=== PATIENT | female | born 1980 | race Two or more races ===

== ENCOUNTER → 2023-06-03 | Emergency (ER) | payer BC, MEDICAID ==
[~2023-06-03] VITALS: Ht 172.7 cm; Wt 85.0 kg
[2023-06-03 10:16] VITALS: BP 142/66; RESP 16; O2SAT 100
[2023-06-03 10:26] VITALS: PULSE 72
[2023-06-03 10:54] LABS: Eosinophils # (auto) 0.1 10 ^3/uL (0-0.8); Hemoglobin 7.2 g/dL (12.2-16.2); Monocytes # (auto) 0.4 10 ^3/uL (0-1.3); Monocytes % (auto) 4.9 % (0.0-12.0)
[2023-06-03 10:56] LABS: Basophils # (auto) 0.2 10 ^3/uL (0-0.2); Basophils % (auto) 1.7 % (0.0-2.0); Eosinophils % (auto) 0.8 % (0.0-7.0); Hematocrit 24.8 % (36.0-46.0); Lymphocytes # (auto) 2.6 10 ^3/uL (0.4-5.4); Lymphocytes % (auto) 28.3 % (10.0-50.0); Mean Corpuscular Hemoglobin 15.7 pg (28.0-32.0); Mean Corpuscular Volume 54.2 fL (80.0-100.0); Neutrophils # (auto) 5.8 10 ^3/uL (1.6-8.6); Neutrophils % (auto) 64.3 % (37.0-80.0); Nucleated Red Blood Cells % 0.1 %; Red Blood Cells 4.57 10^6/uL (4.0-5.20)
[2023-06-03 10:57] LABS: Urine Bacteria None Seen /hpf (None Seen)
[2023-06-03 10:58] LABS: Red Cell Distribution Width 20.3 % (11.8-14.3)
[2023-06-03 11:11] LABS: Albumin 4.4 g/dL (3.2-4.8); Alkaline Phosphatase 107 U/L (46-116); Anion Gap 6 (5-15); Aspartate Aminotransferase < 8 U/L (13-40); BUN/Creatinine Ratio 10.6 (10.0-20.0); Bilirubin, Total 0.8 mg/dL (0.2-1.0); Blood Urea Nitrogen 7 mg/dL (9-23); Carbon Dioxide 25 mmol/L (20-30); Chloride 106 mmol/L (98-107); Glucose 243 mg/dL (74-106); Lipase 45 U/L (12-53); Potassium 3.5 mmol/L (3.5-5.1); Sodium 137 mmol/L (136-145); Total Protein 7.9 g/dL (5.7-8.2)
[2023-06-03 11:11] LABS: Urine Blood 3+ /uL (Negative); Urine Clarity Clear (Clear); Urine Color Light-Yellow (Yellow); Urine Protein, UAD Negative (Negative); Urine Specific Gravity 1.018 (1.001-1.035); Urine Urobilinogen Normal (Negative); Urine WBC 2 /hpf (0 - 5); Urine pH 5.5 (5.0-9.0)
[2023-06-03 11:12] LABS: Alanine Aminotransferase < 9 U/L (7-40)
[2023-06-03 12:29] LABS: Hypochromia Moderate; Ovalocytes FEW
[2023-06-03 12:30] LABS: Tear Drop Cells FEW
[2023-06-03 12:31] LABS: Platelet Estimate Increased
[2023-06-03 13:14] LABS: % Iron Saturation 3.4 % (15-50)
[2023-06-03 13:15] LABS: Ferritin 1.5 ng/mL (10-291)
[2023-06-03 15:32] LABS: Folate (Folic Acid) 22.95 ng/mL (>5.38)
== END | disposition left against medical advice (07) ==
LOC: ER 10:13
DX: D64.9 Anemia, unspecified (principal); N93.9 Abnormal uterine and vaginal bleeding, unspecified
CPT/HCPCS: 36415; 80053; 81001; 81025; 82607; 82728; 82746; 83540; 83550; 83605; 83615; 83690; 83880; 84484; 85025; 85045; 86850; 86900; 86901; 86920; 93005

== ENCOUNTER 2024-09-20 05:27 | Emergency (ER) | payer BC, MEDICAID ==
[~2024-09-20] VITALS: Ht 170.2 cm; Wt 85.7 kg
[2024-09-20 05:28] VITALS: BP 163/85; PULSE 91; RESP 16; TEMP 98.9; O2SAT 99
--- NOTE | 2024-09-20 06:54 | ED.PDOC ---
Musculoskeletal HPI Comments A 44 YEAR OLD FEMALE PRESENTS TO THE ED WITH COMPLAINT OF LEFT SHOULDER PAIN. PATIENT STATES SHE HAS BEEN EXPERIENCING LEFT SHOULDER PAIN FOR THE PAST 2 WEEKS. PATIENT NOTES HER PAIN THAT IS WORSE WITH MOVEMENT. PATIENT REPORTS SHE HAD THIS PAIN IN THE PAST AND WAS DIAGNOSED WITH CALCIFIC TENDINITIS. PATIENT DENIES FEVER, CHILLS, SHORTNESS OF BREATH, CHEST PAIN, ABDOMINAL PAIN, NAUSEA, VOMITING, HEADACHE, OR OTHER COMPLAINTS. NO OTHER SYMPTOMS OR MODIFYING FACTORS AT THIS TIME. PATIENT IS ALERT, ORIENTED X 4, AND HAS STEADY GAIT. Chief Complaint: Upper Extremity Time Seen by MD: 06:26 Primary Care Provider: DR BROCK Reviewed Notes: Nurses Notes, Medications, Allergies Home Meds Active Scripts Tramadol HCl (Tramadol HCl) 50 Mg Tab, 50 MG PO BID, #20 TAB Prov:SAMSON LUCAS 09/20/24 Information Source: Patient Mode of Arrival: Ambulatory Location: Left Extremity Location: Shoulder Timing: Weeks Prehospital treatment: None Severity: Moderate Able to Move Extremity: Yes Bear Weight: Fully Pain: Moderate Mechanism: No Trauma, Spontaneous Circumstances: Spontaneous Onset of Symptoms: Spontaneous Symptoms: Pain DVT Risk Factors: NONE Last Tetanus: UTD, Unknown Associated signs and symptoms: Shoulder pain Past Medical History PAST MEDICAL HISTORY: Denies Surgical History: Denies all surgeries HIDE BUYER History: Denies all HIDE BUYER Hx Family History Family History: Reviewed,noncontributory to illness Social History Smoker: Non-Smoker Alcohol: Denies ETOH Use Drugs: Denies Drug Use Lives In: Home Constitutional: denies: chills, diaphoresis, fatigue, fever, malaise, sweats, weakness, others EENTM: denies: blurred vision, double vision, ear bleeding, ear discharge, ear drainage, ear pain, ear ringing, eye pain, eye redness, hearing loss, mouth pain, mouth swelling, nasal discharge, nose bleeding, nose congestion, nose pain, photophobia, tearing, throat pain, throat swelling, voice changes, others Respiratory: denies: cough, hemoptysis, orthopnea, SOB at rest, shortness of breath, SOB with excertion, stridor, wheezing, others Cardiovascular: denies: chest pain, dizzy spells, diaphoresis, Dyspnea on e xertion, edema, irregular heart beat, left arm pain, lightheadedness, palpitations, PND, syncope, others Gastrointestinal: denies: abdomen distended, abdominal pain, blood streaked bowels, constipated, diarrhea, dysphagia, difficulty swallowing, hematemesis, melena, nausea, poor appetite, poor fluid intake, rectal bleeding, rectal pain, vomiting, others Genitourinary: denies: abnormal vagina bleeding, burning, dyspareunia, dysuria, flank pain, frequency, hematuria, incontinence, pain, , vagina discharge, urgency, others Neurological: denies: dizziness, fainting, headache, left sided numbness, left sided weakness, numbness, paresthesia, pre-existing deficit, right sided numbness, right sided weakness, seizure, speech problems, tingling, tremors, weakness, others Musculoskeletal: reports: joint pain, muscle pain, others (LEFT SHOULDER PAIN); denies: back pain, gout, joint swelling, muscle stiffness, neck pain Integumetry: denies: bruises, change in color, change in hair/nails, dryness, laceration, lesions, lumps, rash, wounds, others Allergic/Immunocompromised: denies: Difficulty Healing, Frequent Infections, Hives, Itching, others Hematologic/Lymphatic: denies: anemia, blood clots, easy bleeding, easy bruising, swollen glands, others Endocrine: denies: excessive hunger, excessive sweating, excessive thirst, excessive urination, flushing, intolerance to cold, intolerance to heat, unexplained weight gain, unexplained weight loss, others Psychiatric: denies: anxiety, bipolar disorder, depression, hopeless, panic disorder, schizophrenia, sleepless, suicidal, others All Other Systems: Reviewed and Negative Physical Exam General Appearance: No Apparent Distress, Normal HEENT: Normal ENT Inspection, PERRL/EOMI, Pharynx Normal, TMs Normal Neck: Full Range of Motion, Non-Tender, Normal, Normal Inspection Respiratory: Chest Non-Tender, Lungs Clear, No Accessory Muscle Use, No Respiratory Distress, Normal Breath Sounds Cardiovascular: No Edema, No JVD, No Murmur, No Gallop, Normal Peripheral Puls es, Regular Rate/Rhythm Breast Exam: Deferred Gastrointestinal: No Organomegaly, Non Tender, No Pulsatile Mass, Normal Bowel Sounds, Soft Genitalia: Deferred Pelvic: Deferred Rectal: Deferred Extremities: Decreased range of motion, No calf tenderness, Normal capillary refill, Normal inspection, No pedal edema, Tender (ON LEFT SHOULDER, NO BONY TENDERNESS, SWELLING AND DEFORMITY OF LEFT SHOULDER. 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 Was a procedure done?: No Differential Diagnosis EXT Differential Diagnosis: Sprain, DJD, Contusion, Strain, Arthritis, Bursitis Other Differential Diagnosis TENDINITIS X-Ray, Labs, Meds, VS Vital Signs Date Time Temp Pulse Resp B/P (MAP) Pulse Ox O2 Delivery O2 Flow Rate FiO2 09/20/24 06:50 Room Air 09/20/24 05:28 98.9 91 16 163/85 99 98.9 Current Medications Medications (Trade) Dose Ordered Sig/Kristy Route Start Time Stop Time Status Last Admin Ketorolac Tromethamine (Toradol Injection) 60 mg ONCE ONCE IM 09/20/24 07:00 09/20/24 07:01 DC 09/20/24 06:56 CLINICAL INDICATION: PAIN, NO INJURY TECHNIQUE: XY L SHOULDER 2+ VIEW XRAY Comparison: None FINDINGS/IMPRESSION: : There is no evidence of acute fracture or dislocation. Soft tissues are unremarkable. ATED BY: AMOS GAXIOLA MD DICTATED DATE/TIME: 09/20/24651 SIGNED BY: AMOS GAXIOLA MD SIGNED DATE/TIME: 09/20/24651 CC: X-Ray, Labs, Meds, VS Comment EXTERNAL MEDICAL RECORDS REVIEWED: [NONE] INDEPENDENT HISTORIANS: [NONE] SOCIAL DETERMINANTS OF HEALTH: [NONE] LABS ORDERED: NONE REVIEWED AND INTERPRETED RESULTS: NONE IMAGING ORDERED: XR SHOULDER RT TREATMENTS ORDERED: TORADOL 60 MG IM PROCEDURES PERFORMED: NONE CRITICAL CARE TIME: NONE I HAVE DISCUSSED THE PATIENT WITH THE ATTENDING PHYSICIAN DR. RAJWINDER LOPEZ AND SHE AGREES WITH THE PATIENT'S PLAN OF CARE AND DISPOSITION. BASED ON HISTORY OF PRESENT ILLNESS, AND PHYSICAL EXAM, PATIENT WILL BE DISCHARGED HOME. DISCUSSED PLAN FOR DISCHARGE HOME WITH RX [ULTRAM]. MEDICATION WARNINGS GIVEN. SHARED DECISION MAKING: DISCUSSED WITH PATIENT THAT THEIR WORKUP WAS NORMAL. PATIENT INSTRUCTED TO FOLLOW UP WITH PRIMARY CARE PROVIDER IN 1-2 DAYS FOR RE- EVALUATION OF SYMPTOMS. PATIENT VERBALIZES UNDERSTANDING TO RETURN TO ED FOR NEW OR WORSENING SYMPTOMS OR IF FOLLOW UP WITH PCP CANNOT BE OBTAINED. PATIENT FEELS COMFORTABLE GOING HOME AT THIS TIME. ALL QUESTIONS ADDRESSED AT TIME OF DISCHARGE. Images Reviewed?: Images reviewed and evaluated by me Time of 1ST Reevaluation: 07:20 Reevaluation 1ST: Improved Patient Education/Counseling: Diagnosis, Treatment, Need For Follow Up Family Education/Counseling: Diagnosis, Treatment, Need For Follow Up Medical Screening: No EMC Exist At This Time Departure 1 Departure Time of Disposition: 07:20 Impression: Primary Impression: Tendinitis of left shoulder Disposition: HOME / SELF CARE / HOMELESS Condition: Stable Additional Instructions: FOLLOW-UP WITH PCP IN 1 TO 2 DAYS FOR MRI STUDY. TAKE MEDICATIONS PRESCRIBED. RETURN TO ED FOR ANY NEW OR WORSENING SYMPTOMS. e-Prescriptions Tramadol HCl (Tramadol HCl) 50 Mg Tab 50 MG PO BID, #20 TAB Prov: SAMSON LUCAS 09/20/24 Discharged With: Self Critical Care Note Critical Care Time?: No Stability Stability form required: No I personally scribed for SAMSON LUCAS ([email or web address]) on 09/20/24 at 06:54. Electronically submitted by Mega Rodriguez ([email or web address]). I personally scribed for SAMSON LUCAS ([email or web address]) on 09/20/24 at 06:59. Electronically submitted by Mega Rodriguez ([email or web address]). SAMSON LUCAS Sep 20, 2024 06:54
[2024-09-20] MEDS: KETOROLAC TROMETH 60MG/2ML VIAL IM ONE (06:56)
[2024-09-20] MEDS ORDERED: TRAM-626 PO (07:02)
== END 2024-09-20 07:15 | disposition home or self-care (01) ==
LOC: ER 05:27
DX: M77.8 Other enthesopathies, not elsewhere classified (principal); Z79.899 Other long term (current) drug therapy
CPT/HCPCS: 73030; 96372; 99283; J1885

== ENCOUNTER 2024-12-25 10:29 | Emergency (ER) | payer BC, MEDICAID ==
[~2024-12-25] VITALS: Ht 170.2 cm; Wt 82.7 kg
[~2024-12-25 10:29] MED LIST: TRAM-626 PO
--- NOTE | 2024-12-25 11:04 | ECG ---
[facility] Test Date: 2024-12-25 Test Time: 10:34:57 Pat Name: CAESAR BALES Department: ED Room: Gender: F Psychology Technician: ERINN : 1980 Requested By: SOBIA HENDERSON Order Number: [id number] Reading MD: Juan M Moreno Measurements Intervals [place] Rate: 94 P: 77 NH: 176 QRS: 66 QRSD: 96 T: 47 QT: 364 QTc: 456 Interpretive Statements Sinus rhythm Electronically Signed On 12-25-2024 18:02:05 PST by Juan M Moreno Please click the below link to view image of tracing.
--- NOTE | 2024-12-25 11:11 | ED.PDOC ---
History of Present Illness HPI Comments 44 year old female with PMHx anemia, DM presents to the ED with a chief complaint of generalized weakness onset 2 days. Patient states she has been experiencing generalized weakness,fatigue and chest discomfort for the past 2 days. She has experienced similar symptoms in the past, usually has blood transfusions every 5-6 months due to heavy menstrual cycles, is currently on her menstrual cycle. Has a new OBGYN, has not set an appointment. Last transfusion was June 2024. Denies fever, chills, headache, shortness of breath, nausea, vomiting, diarrhea. No other symptoms or modifying factors present at this time. Chief Complaint: General Weakness Time Seen by MD: 11:00 Primary Care Provider: DR BROCK Reviewed Notes: Medications, Allergies Allergies: Coded Allergies: NO KNOWN ALLERGIES (Unverified , 12/25/24) Home Meds Active Scripts Tramadol HCl (Tramadol HCl) 50 Mg Tab, 50 MG PO BID, #20 TAB Prov:ASHUTOSH LUCASJTAINDERArabella JESSICA 09/20/24 Information Source: Patient Mode of Arrival: Ambulatory Severity: Moderate Timing: Days Duration: Since onset Prehospital treatment: None Past Medical History PAST MEDICAL HISTORY: Anemia, DM Surgical History: Tubal Ligation Surgical History (Other): spinal effusion, thyroidectomy PRACTICE PROFESSIONAL History: Denies all PRACTICE PROFESSIONAL Hx Family History Family History: Reviewed,noncontributory to illness Social History Smoker: Cigarettes Alcohol: Denies ETOH Use Drugs: Denies Drug Use Lives In: Home Constitutional: reports: fatigue, weakness; denies: chills, diaphoresis, fever, malaise, sweats, others EENTM: denies: blurred vision, double vision, ear bleeding, ear discharge, ear drainage, ear pain, ear ringing, eye pain, eye redness, hearing loss, mouth pain, mouth swelling, nasal discharge, nose bleeding, nose congestion, nose pain, photophobia, tearing, throat pain, throat swelling, voice changes, others Respiratory: denies: cough, hemoptysis, orthopnea, SOB at rest, shortness of breath, SOB with excertion, stridor, wheezing, others Cardiovascular: reports: chest pain; denies: dizzy spells, diaphoresis, Dyspnea on exertion, edema, irregular heart beat, left arm pain, lightheadedness, palpitations, PND, syncope, others Gastrointestinal: denies: abdomen distended, abdominal pain, blood streaked bowels, constipated, diarrhea, dysphagia, difficulty swallowing, hematemesis, melena, nausea, poor appetite, poor fluid intake, rectal bleeding, rectal pain, vomiting, others Genitourinary: denies: abnormal vagina bleeding, burning, dyspareunia, dysuria, flank pain, frequency, hematuria, incontinence, pain, , vagina disch arge, urgency, others Neurological: denies: dizziness, fainting, headache, left sided numbness, left sided weakness, numbness, paresthesia, pre-existing deficit, right sided numbness, right sided weakness, seizure, speech problems, tingling, tremors, weakness, others Musculoskeletal: denies: back pain, gout, joint pain, joint swelling, muscle pain, muscle stiffness, neck pain, others Integumetry: denies: bruises, change in color, change in hair/nails, dryness, laceration, lesions, lumps, rash, wounds, others Allergic/Immunocompromised: denies: Difficulty Healing, Frequent Infections, Hives, Itching, others Hematologic/Lymphatic: denies: anemia, blood clots, easy bleeding, easy bruising, swollen glands, others Endocrine: denies: excessive hunger, excessive sweating, excessive thirst, excessive urination, flushing, intolerance to cold, intolerance to heat, unexplained weight gain, unexplained weight loss, others Psychiatric: denies: anxiety, bipolar disorder, depression, hopeless, panic disorder, schizophrenia, sleepless, suicidal, others All Other Systems: Reviewed and Negative Physical Exam General Appearance: Cachectic HEENT: Pale Conjuntivae (L), Pale Conjuntivae (R), Pharynx Normal, TMs Normal Neck: Full Range of Motion, Non-Tender, Normal, Normal Inspection Respiratory: Chest Non-Tender, Lungs Clear, No Accessory Muscle Use, No Respiratory Distress, Normal Breath Sounds Cardiovascular: No Edema, No JVD, No Murmur, No Gallop, Normal Peripheral Pulses, Regular Rate/Rhythm Breast Exam: Deferred Gastrointestinal: No Organomegaly, Non Tender, No Pulsatile Mass, Normal Bowel Sounds, Soft Genitalia: Deferred Pelvic: Deferred Rectal: Deferred Extremities: No calf tenderness, Normal capillary refill, Normal inspection, No rmal range of motion, Non-tender, No pedal edema Musculoskeletal : Apperance: Normal Neurologic: Alert, 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 Was a procedure done?: No Differential Dx Considerations may include: Anemia, generalized weakness, electrolyte imbalance X-Ray, Labs, Meds, VS Vital Signs Date Time Temp Pulse Resp B/P (MAP) Pulse Ox O2 Delivery O2 Flow Rate FiO2 12/25/24 12:38 98.2 82 16 130/83 (99) 98.2 12/25/24 10:34 94 12/25/24 10:33 98.2 88 18 135/78 100 98.2 Lab Test 12/25/24 11:28 Range/Units White Blood Count 9.4 4.4-10.8 10^3/uL Red Blood Count 4.70 4.0-5.20 10^6/uL Hemoglobin 7.7 L 12.2-16.2 g/dL Hematocrit 26.2 L 36.0-46.0 % Mean Corpuscular Volume 55.7 L 80.0-100.0 fL Mean Corpuscular Hemoglobin 16.4 L 28.0-32.0 pg Mean Corpuscular Hemoglobin Concent 29.4 L 32.0-36.0 g/dL Red Cell Distribution Width 20.6 H 11.8-14.3 % Platelet Count 503 H 140-450 10^3/uL Mean Platelet Volume 8.6 6.9-10.8 fL Neutrophils (%) (Auto) 73.5 37.0-80.0 % Lymphocytes (%) (Auto) 20.0 10.0-50.0 % Monocytes (%) (Auto) 5.4 0.0-12.0 % Eosinophils (%) (Auto) 0.8 0.0-7.0 % Basophils (%) (Auto) 0.3 0.0-2.0 % Neutrophils # (Auto) 6.9 1.6-8.6 10 ^3/uL Lymphocytes # (Auto) 1.9 0.4-5.4 10 ^3/uL Monocytes # (Auto) 0.5 0-1.3 10 ^3/uL Eosinophils # (Auto) 0.1 0-0.8 10 ^3/uL Basophils # (Auto) 0 0-0.2 10 ^3/uL Nucleated Red Blood Cells 0.1 % Platelet Estimate Increased Hypochromasia (manual) Marked Anisocytosis (manual) Slight Microcytosis Marked Schistocytes Few Sodium Level 138 136-145 mmol/L Potassium Level 3.6 3.5-5.1 mmol/L Chloride Level 102 98-107 mmol/L Carbon Dioxide Level 25 20-31 mmol/L Anion Gap 11 5-15 Blood Urea Nitrogen 8 L 9-23 mg/dL Creatinine 0.75 0.550-1.02 mg/dL Glomerular Filtration Rate Calc 99 >90 mL/min BUN/Creatinine Ratio 10.7 10.0-20.0 Serum Glucose 341 H 74-106 mg/dL Calcium Level 9.3 8.7-10.4 mg/dL The patient's CBC shows anemia with a hemoglobin of 7.7 and hematocrit of 26.2 The patient's platelets are 503 The chemistry panel is within normal limits At this time, the patient is being transfused with 1 unit of packed red blood cell secondary to the patient's symptoms The patient will be discharged after she receives 1 unit of packed red blood cells Time of 1ST Reevaluation: 11:30 Reevaluation 1ST: Unchanged Patient Education/Counseling: Diagnosis, Treatment, Prognosis Family Education/Counseling: No Family Present SEPSIS Sepsis Screen Date sepsis recognized/suspect: Dec 25, 2024 Time Sepsis recognized/suspect: 1035 Recent Procedure: No (T) On Antibiotic Therapy: No (N) Respiratory Rate >20: No Heart Rate >90: No Temp<36 C (96.8 F) or >38.3 C: No SBP <90 or MAP <65 mmHG: No New Acute Mental Status Change: No Is the patient on CPAP, BIPAP,: No Physician Orders Urinalysis (12/25/24 11:08) Obtain Consent For: (12/25/24 15:16) Packedcell-Noactive Bleeding (12/25/24 15:16) Administer Blood Products UD (12/25/24 15:16) Vital Signs Date Time Temp Pulse Resp B/P (MAP) Pulse Ox O2 Delivery O2 Flow Rate FiO2 12/25/24 12:38 98.2 82 16 130/83 (99) 98.2 12/25/24 10:34 94 12/25/24 10:33 98.2 88 18 135/78 100 98.2 Laboratory Tests Test 12/25/24 11:28 White Blood Count 9.4 10^3/uL (4.4-10.8) Departure 1 Departure Time of Disposition: 16:17 Impression: Primary Impression: Anemia Qualified Codes: D64.9 - Anemia, unspecified Disposition: 30 STILL A PATIENT Condition: Fair Critical Care Note Critical Care Time?: No Stability Stability form required: No Heart Score Heart Score: Heart Score Response (Comments) Value History N/A 0 EKG N/A 0 Age N/A 0 Risk Factors N/A 0 Troponin N/A 0 Total 0 I personally scribed for SOBIA HENDERSON MD ([email or web address]) on 12/25/24 at 11:11. Electronically submitted by Corrine Koroma ([email or web address]). SOBIA HENDERSON MD Dec 25, 2024 11:11
[2024-12-25 11:48] LABS: Hematocrit 26.2 % (36.0-46.0); Hemoglobin 7.7 g/dL (12.2-16.2); Mean Corpuscular Hemoglobin 16.4 pg (28.0-32.0); Mean Corpuscular Volume 55.7 fL (80.0-100.0); Nucleated Red Blood Cells % 0.1 %
[2024-12-25 11:54] LABS: Chloride 102 mmol/L (98-107); Potassium 3.6 mmol/L (3.5-5.1); Sodium 138 mmol/L (136-145)
[2024-12-25 11:55] LABS: Anion Gap 11 (5-15); Calcium 9.3 mg/dL (8.7-10.4); Carbon Dioxide 25 mmol/L (20-31)
[2024-12-25 12:00] LABS: BUN/Creatinine Ratio 10.7 (10.0-20.0)
[2024-12-25 12:02] LABS: Blood Urea Nitrogen 8 mg/dL (9-23); Glucose 341 mg/dL (74-106)
[2024-12-25 12:22] LABS: Anisocytosis Slight
[2024-12-25 16:21] VITALS: PULSE 83; RESP 13; O2SAT 100
[2024-12-25 17:54] VITALS: BP 133/64; PULSE 91; RESP 16; TEMP 98.8
[2024-12-25 18:16] VITALS: BP 127/63; PULSE 84; RESP 16; TEMP 98.6
[2024-12-25 19:00] VITALS: PULSE 83; RESP 20; O2SAT 100
[2024-12-25 19:10] LABS: Urine Protein, UAD TRACE (Negative)
[2024-12-25 21:00] VITALS: BP 147/71; PULSE 78; RESP 19; TEMP 98.6; O2SAT 99
== END 2024-12-25 21:49 | disposition home or self-care (01) ==
LOC: ER 10:29
DX: D64.9 Anemia, unspecified (principal); E11.9 Type 2 diabetes mellitus without complications; F17.210 Nicotine dependence, cigarettes, uncomplicated; Z90.89 Acquired absence of other organs; Z98.51 Tubal ligation status
CPT/HCPCS: 36415; 36430; 80048; 81001; 85025; 86850; 86900; 86901; 86920; 93005; 99285; P9016